=== PATIENT | male | born 1965 | race Native Hawaiian/Other Pacific Islander ===

== ENCOUNTER 2020-04-22 13:47 | Outpatient (CLI) | payer BC, OTHER | END 2020-04-22 21:12 | disposition home or self-care (01) | LOC: LAB 13:47 | PROVIDERS: ATTEND Nurse Practitioner Family | DX: U07.1 COVID-19 (principal); Z20.828 Contact with and (suspected) exposure to other viral communicable diseases; J32.9 Chronic sinusitis, unspecified | CPT/HCPCS: 87635; G2023; U0003 ==

== ENCOUNTER 2020-05-02 08:24 | Outpatient (CLI) | payer BC, OTHER | END 2020-05-02 21:12 | disposition home or self-care (01) | LOC: LAB 08:24 | PROVIDERS: ATTEND Nurse Practitioner Family | DX: Z11.59 Encounter for screening for other viral diseases (principal); Z86.19 Personal history of other infectious and parasitic diseases | CPT/HCPCS: 87635; G2023; U0003 ==